=== PATIENT | female | born 1990 | race Caucasian/White ===

== ENCOUNTER 2018-04-13 06:27 | Emergency (ER) | payer BC, OTHER ==
[~2018-04-13] VITALS: Ht 162.6 cm; Wt 117.0 kg
[2018-04-13 06:32] VITALS: BP 118/81
--- NOTE | 2018-04-13 06:37 | NUR ---
PT TAKEN TO BED 4
--- NOTE | 2018-04-13 06:39 | NUR ---
Dr. Abreu evaluating patient at bedside.
[2018-04-13] MEDS ORDERED: KETOROLAC 60 MG/2 ML VIAL IM ONE (06:45)
--- NOTE | 2018-04-13 06:55 | NUR ---
PT BIB SELF C/O NECK PAIN AFTER WAKING UP 1 HOUR PHYSICIST ACOUSTICS. PT DENIES TRAUMA TO NECK, NO REDNESS SWELLING OR BRUISING NOTED. PT SITTING IN BED, AT BEDSIDE. NO PMH
--- NOTE | 2018-04-13 07:15 | NUR ---
REPORT GIVEN TO AMADO NEWMAN, TRANSFER OF CARE AT THIS TIME.
--- NOTE | 2018-04-13 07:16 | NUR ---
RECEIVED REPORT FROM JEREMIE FISCHER.
[2018-04-13 08:06] VITALS: BP 115/77
--- NOTE | 2018-04-13 08:06 | NUR ---
Dr. Abreu reevaluating patient at bedside.
--- NOTE | 2018-04-13 08:06 | NUR ---
Flory brandt in [facility] - 04/13/18 at [email or web address] Abreu evaluating patient at bedside.
--- NOTE | 2018-04-13 08:08 | NUR ---
Patient discharged by dr thomas with v/s stable. Written and verbal after care instructions given and explained. Patient alert, oriented and verbalized understanding of instructions. Ambulatory with steady gait. All questions addressed prior to discharge. ID band removed. Patient advised to follow up with PMD. Rx of soma& naprosyn given. Patient educated on indication of medication including possible reaction and side effects. Opportunity to ask questions provided and answered.
== END 2018-04-13 08:08 | disposition home or self-care (01) ==
LOC: MED 06:27
DX: M43.6 Torticollis (principal)
CPT/HCPCS: 96372; 99283; J1885